=== PATIENT | female | born 1960 | race Two or more races ===

== ENCOUNTER 2024-01-30 12:49 | Inpatient (IN) | payer BC ==
[~2024-01-30] VITALS: Ht 177.8 cm; Wt 115.4 kg
[2024-01-30 13:55] LABS: BASOPHILS % (AUTO) 0.6 % (0.0-2.0); EOSINOPHILS # (AUTO) 0.5 K/uL (0.0-0.7); EOSINOPHILS % (AUTO) 8.5 % (0.0-6.0); HEMATOCRIT 31 % (33-45); HEMOGLOBIN 10.7 g/dL (11.5-14.8); LYMPHOCYTES # (AUTO) 0.7 K/uL (0.8-4.8); LYMPHOCYTES % (AUTO) 11.7 % (20.0-44.0); MEAN CORPUSCULAR HEMOGLOBIN 41 PG (26.0-33.0); MEAN CORPUSCULAR HGB CONC 34 g/dl (31.0-36.0); MEAN CORPUSCULAR VOLUME 118 fL (82-100); MONOCYTES # (AUTO) 0.4 K/uL (0.1-1.30); MONOCYTES % (AUTO) 7.9 % (2.0-12.0); NEUTROPHILS % (AUTO) 71.3 % (43.0-81.0); PLATELET COUNT (AUTO) 165 K/uL (150-450); RED BLOOD CELL COUNT(AUTO) 2.64 MIL/uL (4.0-5.2); RED CELL DISTRIBUTION WIDTH 18.3 % (11.5-15.0); WHITE BLOOD COUNT (AUTO) 5.6 K/uL (4.3-11.0)
[2024-01-30 13:58] LABS: CARBON DIOXIDE 30 mmol/L (21-32); CHLORIDE 94 mmol/L (98-107); CREATININE 1.8 mg/dL (0.6-1.3); GLUCOSE 137 mg/dL (74-106); POTASSIUM 4.3 mmol/L (3.5-5.1); SODIUM SERUM 129 mmol/L (136-145); UREA NITROGEN, BLOOD 22 mg/dL (7-18)
[2024-01-30 14:04] LABS: ALANINE AMINOTRANSFERASE 95 U/L (12-78); ALBUMIN 2.8 g/dL (3.4-5.0); ALCOHOL, BLOOD < 3 mg/dL (0-10); ALKALINE PHOSPHATASE 126 U/L (46-116); ASPARTATE AMINOTRANSFERASE 145 U/L (15-37); BILIRUBIN,DIRECT 0.6 mg/dL (0.0-0.2); BILIRUBIN,TOTAL 1.1 mg/dL (0.2-1.0); SALICYLATE 1.2 mg/dL (2.8-20.0); TOTAL PROTEIN, SERUM 7.2 g/dL (6.4-8.2)
[2024-01-30 14:05] LABS: ACETAMINOPHEN <10 ug/ml (10-30)
[2024-01-30] MEDS: Thiamine 100 MG in IV D5W 50 ML IV SCH (14:15)
[2024-01-30] MEDS ORDERED: Magnesium 1GM/D5W 100ML PREMIX 100 ML IV ONE (15:48)
[2024-01-30] MEDS: Folic acid 1 MG in IV D5W 50 ML IV SCH (15:55)
[2024-01-30 16:16] LABS: BILIRUBIN,URINE Negative (NEGATIVE); BLOOD, URINE Moderate Ery/uL (NEGATIVE); COLOR,URINE YELLOW (YELLOW); KETONES,URINE Negative (NEGATIVE); LEUKOCYTE ESTERASE ,URINE Large (NEGATIVE); NITRITE, URINE Negative (NEGATIVE); PH,URINE 5.5 (5.0-8.0); PROTEIN,URINE Negative (NEGATIVE); UGLUCOSE Negative (NEGATIVE)
[2024-01-30 16:17] LABS: APPEARANCE,URINE HAZY (CLEAR)
[2024-01-30] MEDS: Magnesium 1 GM/2 ML VIAL IV ONE (16:20)
[2024-01-30 16:30] LABS: ADD URINE CULTURE YES; BACTERIA,URINE 4+ /HPF (None Seen); SQUAMOUS EPITHELIAL CELL,UR Few /HPF (None Seen); WBC,URINE TOO NUMEROUS TO COUN /HPF (0-3)
[2024-01-30 16:38] LABS: AMPHETAMINE, URINE NEGATIVE (NEGATIVE); BARBITURATE, URINE NEGATIVE (NEGATIVE); BENZODIAZEPINE, URINE NEGATIVE (NEGATIVE); CANNABINOID, URINE NEGATIVE (NEGATIVE); COCCAINE, URINE NEGATIVE (NEGATIVE); OPIATE, URINE NEGATIVE (NEGATIVE); PHENCYCLIDINE SCREEN,URINE NEGATIVE (NEGATIVE)
[2024-01-30] MEDS ORDERED: HYDR25TA4 PO (16:47)
[2024-01-30] MEDS ORDERED: METO-358 PO (16:47)
[2024-01-30] MEDS ORDERED: VENL75CA62 PO (16:47)
[2024-01-30 18:06] LABS: BAND % (MANUAL) 1 % (0.0-5.0); EOSINOPHILS % (MANUAL) 6 % (0-4); LYMPHOCYTES % (MANUAL) 9 % (16-48); MONOCYTES % (MANUAL) 7 % (0-11.0); NEUTROPHILS % (MANUAL) 77 (42-76); PLATELET ESTIMATE ADEQUATE
[2024-01-30 18:07] LABS: ANISOCYTOSIS 2+
[2024-01-30 18:08] LABS: STOMATOCYTES 2+
[2024-01-30] MEDS ORDERED: Z GUARD REMEDY 4 OZ OINT TP PRN (18:30)
[2024-01-30] MEDS ORDERED: ONDANSETRON HCL/PF 4 MG/2 ML VIAL IVP PRN (18:30)
[2024-01-30] MEDS ORDERED: MAGNESIUM HYDROXIDE 30 ML UDC PO PRN (18:30)
[2024-01-30] MEDS ORDERED: LORAZEPAM 0.5 MG TABLET PO PRN (18:30)
[2024-01-30] MEDS ORDERED: ACETAMINOPHEN 325 MG TABLET PO PRN (18:30)
[2024-01-30 20:09] VITALS: BP 124/79; TEMP 97.5; O2SAT 97
[2024-01-30] MEDS: CEFTRIAXONE 1 G in IV D5W 50 ML IV SCH (20:32)
[2024-01-30] MEDS: IV NS 0.9% 1,000 ML IV PRN (20:32)
[2024-01-30] MEDS: CHLORDIAZEPOXIDE HCL 25 MG CAPSULE PO SCH (20:32)
[2024-01-31 07:53] LABS: BASOPHILS % (AUTO) 0.6 % (0.0-2.0); EOSINOPHILS # (AUTO) 0.4 K/uL (0.0-0.7); EOSINOPHILS % (AUTO) 7.3 % (0.0-6.0); HEMATOCRIT 30 % (33-45); HEMOGLOBIN 10.2 g/dL (11.5-14.8); LYMPHOCYTES # (AUTO) 0.8 K/uL (0.8-4.8); LYMPHOCYTES % (AUTO) 13.9 % (20.0-44.0); MEAN CORPUSCULAR HEMOGLOBIN 41 PG (26.0-33.0); MEAN CORPUSCULAR HGB CONC 35 g/dl (31.0-36.0); MEAN CORPUSCULAR VOLUME 119 fL (82-100); MONOCYTES # (AUTO) 0.7 K/uL (0.1-1.30); MONOCYTES % (AUTO) 10.9 % (2.0-12.0); NEUTROPHILS # (AUTO) 4.1 K/uL (1.8-8.9); NEUTROPHILS % (AUTO) 67.3 % (43.0-81.0); PLATELET COUNT (AUTO) 167 K/uL (150-450); RED BLOOD CELL COUNT(AUTO) 2.48 MIL/uL (4.0-5.2); RED CELL DISTRIBUTION WIDTH 18.9 % (11.5-15.0); WHITE BLOOD COUNT (AUTO) 6.1 K/uL (4.3-11.0)
[2024-01-31] MEDS: FOLIC ACID 1 MG TABLET PO SCH (08:27)
[2024-01-31] MEDS: PANTOPRAZOLE 40 MG TABLET.DR PO SCH (08:27)
[2024-01-31] MEDS: THIAMINE HCL 100 MG TABLET PO SCH (08:27)
[2024-01-31] MEDS: VENLAFAXINE XR 75 MG CAP.SR.24H PO SCH (08:28)
[2024-01-31 08:36] VITALS: BP 107/67; TEMP 98.1; O2SAT 94
[2024-01-31 10:01] LABS: CALCIUM, SERUM 8.5 mg/dL (8.5-10.1); CREATININE 1.5 mg/dL (0.6-1.3); PHOSPHORUS 3.6 mg/dL (2.5-4.9); POTASSIUM 3.7 mmol/L (3.5-5.1)
[2024-01-31 16:42] VITALS: BP 113/80; TEMP 98.1; O2SAT 96
[2024-01-31 20:00] VITALS: BP 124/76; TEMP 98.6; O2SAT 100
[2024-02-01 07:08] LABS: BASOPHILS % (AUTO) 0.6 % (0.0-2.0); EOSINOPHILS # (AUTO) 0.7 K/uL (0.0-0.7); EOSINOPHILS % (AUTO) 11.9 % (0.0-6.0); HEMATOCRIT 29 % (33-45); HEMOGLOBIN 10.1 g/dL (11.5-14.8); LYMPHOCYTES % (AUTO) 16.8 % (20.0-44.0); MEAN CORPUSCULAR HEMOGLOBIN 42 PG (26.0-33.0); MEAN CORPUSCULAR HGB CONC 35 g/dl (31.0-36.0); MEAN CORPUSCULAR VOLUME 120 fL (82-100); MONOCYTES # (AUTO) 0.9 K/uL (0.1-1.30); NEUTROPHILS # (AUTO) 3.5 K/uL (1.8-8.9); NEUTROPHILS % (AUTO) 56.7 % (43.0-81.0); PLATELET COUNT (AUTO) 181 K/uL (150-450); RED BLOOD CELL COUNT(AUTO) 2.43 MIL/uL (4.0-5.2); RED CELL DISTRIBUTION WIDTH 19.2 % (11.5-15.0); WHITE BLOOD COUNT (AUTO) 6.1 K/uL (4.3-11.0)
[2024-02-01 07:33] LABS: ALBUMIN 2.3 g/dL (3.4-5.0); BILIRUBIN,TOTAL 0.5 mg/dL (0.2-1.0); CALCIUM, SERUM 8.8 mg/dL (8.5-10.1); CREATININE 1.2 mg/dL (0.6-1.3); MAGNESIUM 2.1 mg/dL (1.8-2.4); POTASSIUM 3.7 mmol/L (3.5-5.1); TOTAL PROTEIN, SERUM 6.6 g/dL (6.4-8.2)
[2024-02-01] MEDS: CYANOCOBALAMIN 1,000 MCG/ML VIAL IM SCH (10:51)
[2024-02-01] MEDS: CEFTRIAXONE 1 G in IV D5W 50 ML IV SCH (11:16)
[2024-02-01] MEDS ORDERED: CYAN250010 PO (11:43)
[2024-02-03 04:06] LABS: PTH, INTACT 40 pg/mL (15-65)
[2024-02-03 14:11] LABS: *SPE A/G RATIO 0.9 (0.7-1.7); *SPE ALBUMIN 2.9 g/dL (2.9-4.4); *SPE ALPHA-1-GLOBULIN 0.3 g/dL (0.0-0.4); *SPE ALPHA-2-GLOBULIN 0.6 g/dL (0.4-1.0); *SPE BETA GLOBULIN 0.9 g/dL (0.7-1.3); *SPE GLOBULIN, TOTAL 3.1 g/dL (2.2-3.9); *SPE M-SPIKE 0.2 g/dL (Not Observed); *SPEGAMMA GLOBULIN 1.3 g/dL (0.4-1.8)
== END 2024-02-01 13:20 | disposition home or self-care (01) | DRG 896 ==
LOC: ER 13:02 → TELE 18:08 → MED 19:39
PROVIDERS: ADMIT Nurse Practitioner Family; ATTEND Nurse Practitioner Family
DX: F10.139 Alcohol abuse with withdrawal, unspecified (principal); G92.9 Unspecified toxic encephalopathy; N39.0 Urinary tract infection, site not specified; E87.1 Hypo-osmolality and hyponatremia; N17.9 Acute kidney failure, unspecified; E44.0 Moderate protein-calorie malnutrition; K70.10 Alcoholic hepatitis without ascites; D53.9 Nutritional anemia, unspecified; E86.9 Volume depletion, unspecified; E88.09 Other disorders of plasma-protein metabolism, not elsewhere classified; M89.8X9 Other specified disorders of bone, unspecified site; K76.0 Fatty (change of) liver, not elsewhere classified; Z90.710 Acquired absence of both cervix and uterus; R53.1 Weakness; Z20.822 Contact with and (suspected) exposure to COVID-19; N18.9 Chronic kidney disease, unspecified; I12.9 Hypertensive chronic kidney disease with stage 1 through stage 4 chronic kidney disease, or unspecified chronic kidney disease; B96.89 Other specified bacterial agents as the cause of diseases classified elsewhere
CPT/HCPCS: 36415; 70450-TC; 71045-TC; 76700-TC; 80048-TC; 80053-TC; 80076-TC; 81001; 82140-TC; 82550-TC; 82607-TC; 82728-TC; 82962-TC; 83540-TC; 83735-TC; 83970; 84100-TC; 84155; 84165; 84443-TC; 85025-TC; 87086-TC; A4223; G0378; G0480; J0696; J3411; J3420; J3475; J3490; J7030; J7060

== ENCOUNTER 2024-02-05 11:28 | Emergency (ER) | payer BC ==
[~2024-02-05] VITALS: Ht 175.3 cm; Wt 91.2 kg
[~2024-02-05 11:28] MED LIST: CYAN250010 PO; VENL75CA62 PO
[2024-02-05 13:17] VITALS: BP 120/91; TEMP 98.8; O2SAT 94
== END 2024-02-05 13:18 | disposition home or self-care (01) ==
LOC: ER 11:44
DX: R60.0 Localized edema (principal); I10 Essential (primary) hypertension; F10.20 Alcohol dependence, uncomplicated; Z86.79 Personal history of other diseases of the circulatory system; Z96.653 Presence of artificial knee joint, bilateral; Z86.59 Personal history of other mental and behavioral disorders; Z91.018 Allergy to other foods; Z60.2 Problems related to living alone
CPT/HCPCS: 93971-TC